=== PATIENT | male | born 1970 | race Caucasian/White ===

== ENCOUNTER 2018-07-19 08:47 | Emergency (ER) | payer OTHER ==
[2018-07-19] MEDS ORDERED: Sodium Chloride 0.9% 1,000 ML IV ONE (09:23)
--- NOTE | 2018-07-19 09:25 | C.PDOC ---
History Of Present Illness 47 year old male, whose past medical history includes diabetes, presents to the ED for evaluation of dizziness and elevated blood sugar noted this morning. Patient also reports feeling a tingling sensation to his toes for weeks. Patient unable to elaborate further secondary to being a poor historian. Time Seen by Provider: 07/19/18 09:11 Chief Complaint (Nursing): Dizziness/Lightheaded History Per: Patient History/Exam Limitations: other (poor historian ) Onset/Duration Of Symptoms: Hrs Current Symptoms Are (Timing): Still Present Additional History Per: Patient Past Medical History Reviewed: Historical Data, Nursing Documentation, Vital Signs Vital Signs: Last Vital Signs Temp 98.1 F 07/19/18 09:04 Pulse 91 H 07/19/18 09:04 Resp 18 07/19/18 09:04 BP 122/92 H 07/19/18 09:04 Pulse Ox 99 07/19/18 09:04 - Medical History PMH: No Chronic Diseases Surgical History: No Surg Hx Family History: States: Unknown Family Hx - Social History Hx Alcohol Use: No Hx Substance Use: No - Immunization History Hx Tetanus Toxoid Vaccination: No Hx Influenza Vaccination: No Hx Pneumococcal Vaccination: No Review Of Systems Constitutional: Positive for: Other (elevated blood sugar ) Neurological: Positive for: Dizziness, Other (tinging sensation to toes ) Physical Exam - Physical Exam Appears: Non-toxic, No Acute Distress Skin: Normal Color, Warm, Dry Head: Atraumatic, Normacephalic Eye(s): bilateral: Normal Inspection Oral Mucosa: Moist Neck: Supple Chest: Symmetrical, No Deformity, No Tenderness Cardiovascular: Rhythm Regular, No Murmur Respiratory: Normal Breath Sounds, No Rales, No Rhonchi, No Wheezing Gastrointestinal/Abdominal: Soft, No Tenderness Extremity: Normal ROM, Capillary Refill (less than 2 seconds ) Neurological/Psych: Oriented x3, Normal Speech, Normal Cognition ED Course And Treatment - Laboratory Results Result Diagrams: 07/19/18 10:09 07/19/18 10:09 ECG: Interpreted By Me, Viewed By Me ECG Rhythm: Sinus Rhythm Interpretation Of ECG: NSR with no ST/ T wave changes Rate From EC O2 Sat by Pulse Oximetry: 99 (on RA) Pulse Ox Interpretation: Normal Medical Decision Making Medical Decision Making: non specific dizziness no cp only c/o of "toe paresthesias". - ro metabolic infecitous cardaic etioloyg - suspect peirpheal neuropahty- in er neuro intact Progress: Bloodwork, urinalysis, and EKG ordered and reviewed. IV Fluids given. labs neg no eo of dka.pt listening to music in nad. neuro intact. suspect dehydration, peripheral neuropahtly. neuro intact. cva/tia unlikely. Disposition - Disposition Disposition: HOME/ ROUTINE Disposition Time: 11:00 Condition: STABLE Additional Instructions: follow up with your doctor/clinic. you will need further testing as an outpatient. return to er with worsening symptoms or concerns. Instructions: Dizziness, Nonvertigo, (DC), Paresthesias (DC), Foot Care for Diabetics Forms: Seen (Tajik) - Clinical Impression Clinical Impression: Dizziness - Scribe Statement The provider has reviewed the documentation as recorded by the Scribe (Karen Dasilva) Provider Attestation: All medical record entries made by the Scribe were at my direction and personally dictated by me. I have reviewed the chart and agree that the record accurately reflects my personal performance of the history, physical exam, medical decision making, and the department course for this patient. I have also personally directed, reviewed, and agree with the discharge instructions and disposition.
[2018-07-19 10:13] LABS: BASO % 0.7 % (0.0-2.0); EOS # 0.2 K/uL (0.0-0.7); EOS % 2.9 % (0.0-4.0); HEMOGLOBIN 14.6 g/dL (12.0-18.0); LYMPH # 1.5 K/uL (1.0-4.3); LYMPH % 25.4 % (20.0-40.0); MEAN CELL VOLUME 84.8 fL (80.0-94.0); MEAN CORPUSCULAR HEMOGLOBIN 29.3 pg (27.0-31.0); MEAN CORPUSCULAR HGB CONC 34.5 g/dL (33.0-37.0); MEAN PLATELET VOLUME 8.6 fL (7.2-11.7); MONO # 0.4 K/uL (0.0-0.8); MONO % 6.1 % (0.0-10.0); NEUT % 64.9 % (50.0-75.0); NRBC % 0.1 % (0.0-2.0); RBC 4.98 Mil/uL (4.40-5.90); RED CELL DISTRIBUTION WIDTH 12.9 % (11.5-14.5); WHITE BLOOD COUNT 6.1 K/uL (4.8-10.8)
[2018-07-19 10:15] LABS: URINE BILIRUBIN NEGATIVE (NEGATIVE); URINE BLOOD NEGATIVE (NEGATIVE); URINE CLARITY Clear (Clear); URINE COLOR Yellow (YELLOW); URINE GLUCOSE (UA) 3+ mg/dL (Normal); URINE LEUKOCYTE ESTERASE NEG Leu/uL (Negative); URINE PROTEIN NEGATIVE (NEGATIVE); URINE UROBILINOGEN NORMAL mg/dL (0.2-1.0)
[2018-07-19 10:24] LABS: ALB/GLOB RATIO 1.7 (1.0-2.1); ALBUMIN 4.3 g/dL (3.5-5.0); ALT/SGPT 24 U/L (21-72); AST/SGOT 20 U/L (17-59); BLOOD UREA NITROGEN 20 mg/dL (9-20); CALCIUM 8.9 mg/dl (8.6-10.4); GFR NON-AFRICAN AMERICAN > 60
[2018-07-19 10:27] LABS: PROTHROMBIN TIME 10.7 SECONDS (9.7-12.2)
[2018-07-19 11:48] VITALS: BP 126/87; PULSE 75; RESP 16; TEMP 97.8
[2018-07-19 15:35] VITALS: O2SAT 99
--- NOTE | 2018-07-22 20:18 | CARD ---
APPROVED REPORT Date of service: 07/19/2018 EKG Measurement Heart [id number] OR 140P [id number] <Conclusion> Normal sinus rhythm Incomplete right bundle branch block Low voltage limb leads Abnormal ECG
== END 2018-07-19 12:05 | disposition home or self-care (01) ==
LOC: C.ER 08:47
DX: R42 Dizziness and giddiness (principal)
CPT/HCPCS: 80053; 81001; 82948; 84484; 85025; 85610; 85730; 93005; 96360; 99285; J7030